=== PATIENT | female | born 1970 | race Caucasian/White ===

== ENCOUNTER 2024-06-01 09:17 | Outpatient (AMB) | payer BC, SELFPAY ==
--- NOTE | 2024-06-01 09:17 | A.SPINEOV_ITS ---
Vital Signs 06/01/24 09:28 Height 5 ft 2 in Weight 140 lb BMI 25.6 Intake Visit Reasons: Herniated disc c7 Intake Note: Ms. Bennett is here today c/o Neck pain and left arm pain. Bath Steward/Stewardess Required: No Allergies Penicillins Allergy (Severe, Verified 06/01/24 09:29) Rash pneumococcal vaccine Allergy (Severe, Verified 06/01/24 09:29) Swelling Physical Exam Vital Signs: BMI result Body Mass Index 25.6 Assessment & Plan Assessment & Plan (1) Herniation of cervical intervertebral disc with radiculopathy: Code(s): M50.10 - Cervical disc disorder with radiculopathy, unspecified cervical region Category: Medical Plan: Dear colleague On 06/01/2024, I saw for 2nd opinion Shawanda Bennett chief complaint of left arm pain and numbness. HPI: This 54-year-old female went on a trip to [place] in November 2023 when she developed an acute pain on the dorsum of her left lower arm and num bness of her fingers. Initially the pain was 10/10 and improved to be currently at 6/10. The symptoms have persisted despite physical therapy chiropractic therapy and a course of prednisone. She takes gabapentin 200 mg twice a day and meloxicam to treat the ongoing pain symptoms. The pain radiates from the neck down to her left arm into the 2nd and 3rd finger. In addition there is numbness of the 2nd and 3rd finger. The pain wakes her up at night and it interferes with her daily activities. 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 She is looking for a more definitive PMH: Migraines, GERD, migraines, some form of autoimmune disease Medications: Famotidine, gabapentin, meloxicam, sumatriptan, Bprimate Allergies: Penicillin, pneumonia vaccine Social history: . Nonsmoker Physical Exam: Pleasant female. Spurling sign is positive with pain radiating down her left arm. Motor exam is 5/5 throughout. Sensory exam shows diminished sensation over the 2nd and 3rd digit on the left side. Decreased triceps reflex on the left. Radiological Studies: MRI done at [facility] on 02/07/2024 shows a cervical disc herniation C6-7 compressing the left C7 nerve root in addition there is complete disc collapse of C5-6 with for listhesis of C5 C6. Impression/Plan: This patient is suffering from a left C7 radiculopathy due to a disc herniation not responding to conservative treatments. I offered her a surgery decompress the C7 nerve root. However, I would like to have a CT of the cervical spine to assess if the C5-6 level is auto fused. If it is, then I would propose to do an anterior diskectomy and fusion C6-7 but if it is in fused then I would prefer to insert an artificial disc C6-7 to reduce the stress on the C5-6 level in the future. The patient will return to my clinic after the CT is done to finalize the surgical plan. Thank you for allowing me to participate in your patients care. total time spent was 50 minutes in counseling ,coordination of plan, personal review of imaging, surgical decision making and subsequent plan Chase Quigley MD, PhD Spine Fellowship Trained Neurosurgeon Director, [facility] Orders: Orders CT cervical spine wo IV con Today M50.10 - Cervical disc disorder with radiculopathy, unspecified cervical region Coding Level of Care Code New Pt Level 4 (89668) Diagnoses Herniation of cervical intervertebral disc with radiculopathy M50.10
[2024-06-01 09:28] VITALS: BMI 25.6
== END 2024-06-01 10:01 | disposition home or self-care (01) ==
PROVIDERS: PCP Internal Medicine; Visit Provider Neurological Surgery
DX: M50.10 Cervical disc disorder with radiculopathy, unspecified cervical region (principal)
CPT/HCPCS: 99204

== ENCOUNTER 2024-06-15 14:27 | Outpatient (AMB) | payer BC, SELFPAY ==
--- NOTE | 2024-06-15 14:46 | HO.SPINEOV ---
Intake Visit Reasons: F/up CT/finalize surgical plans Intake Note: Mrs. Bennett is here today to F/u on the results to her CT. Benefits Coordinator Required: No Allergies Penicillins Allergy (Severe, Verified 06/15/24 14:46) Rash pneumococcal vaccine Allergy (Severe, Verified 06/15/24 14:46) Swelling Assessment & Plan Assessment & Plan (1) Herniation of cervical intervertebral disc with radiculopathy: Code(s): M50.10 - Cervical disc disorder with radiculopathy, unspecified cervical region Category: Medical Plan Dear colleague, On 06/15/2024 I saw for follow-up Shawanda Bennett to discuss a surgical plan. This patient is suffering from a left C7 radiculopathy due to a disc herniation not responding to conservative treatments. We decided to order a CT scan to determine which surgery would be most appropriate to treat her left arm pain. The CT scan of the cervical spine shows that the C5-6 level is fused and therefore in my opinion an anterior diskectomy and fusion C6-7 is the most appropriate procedure this patient. She scheduled for 06/26/2024. We discussed the procedure and expected postoperative outcome. I spent 15 minutes in his consult to review imaging and discuss plan of care. Chase Quigley MD, PhD Spine Fellowship Trained Neurosurgeon Director, [facility] [place] [facility] Coding Level of Care Code Est Pt Level 2 (43618) Diagnoses Herniation of cervical intervertebral disc with radiculopathy M50.10
== END 2024-06-15 15:41 | disposition home or self-care (01) ==
LOC: HO.HNS 14:27
PROVIDERS: PCP Internal Medicine; Visit Provider Neurological Surgery
DX: M50.10 Cervical disc disorder with radiculopathy, unspecified cervical region (principal)
CPT/HCPCS: 99212

== ENCOUNTER → 2024-07-06 12:18 | Outpatient (BNV) | payer BC, SELFPAY | PROVIDERS: PCP Internal Medicine; Visit Provider Internal Medicine Cardiovascular Disease | DX: Z01.810 Encounter for preprocedural cardiovascular examination (principal); M50.10 Cervical disc disorder with radiculopathy, unspecified cervical region | CPT/HCPCS: 93010 ==

== ENCOUNTER 2024-07-11 05:42 | Day surgery (SDC) | payer BC, SELFPAY ==
[2024-07-06 11:41] VITALS: BP 147/72; PULSE 78; RESP 16; O2SAT 99; BMI 25.6
--- NOTE | 2024-07-06 12:18 | ECG_ITS ---
Test Reason : PREOP Blood Pressure : */* mmHG Vent. Rate : 59 BPM Atrial Rate : 59 BPM P-R Int : 158 ms QRS Dur : 74 ms QT Int : 374 ms P-R-T Axes : -15 -9 -14 degrees QTcB Int : 370 ms Sinus bradycardia Otherwise normal ECG No previous ECGs available Referred By: Megan Hernandez Electronically Signed By: Andres Ann
--- NOTE | 2024-07-10 17:19 | P.CONAN_ITS ---
HPI - Anesthesia Eval Consult details Narrative: 54 yo female patient for C6-7 ACDF PMFSH Active Problems Active Problems: All Active Problems Herniation of cervical intervertebral disc with radiculopathy (Acute) Past Medical History Medical History Osteopenia Personal history of COVID-19 (02/2024) Asthma Raynaud disease Chilblain GERD (gastroesophageal reflux disease) Left arm numbness Migraines Family History Family history of problems with anesthesia: No Surgical History Surgical History History of section Hx of breast surgery Hx of hysterectomy Hx of tubal ligation Hx of colonoscopy History of Problems with Anesthesia: No Social History Social History Household Members: Spouse Housing: House Are you a primary spiritual care coordinator to a significant other at home: No Do you presently have visiting nurse or other home services: No Comment: aware of trip hazard Patient Tobacco Use Status: Never used Tobacco e-Cigarette/Vaping Use: Never Used Use of substances other than those prescribed or required for medical reasons: No Have you been hit, kicked, punched, or otherwise hurt by someone within the past year? If so, by whom?: No Are you DNR?: No Advance Directives: No Advance Directives Information Provided: Yes Advance Directives on File: No Poor oral hygiene: No Meds Allergies Allergy/AdvReac Type Severity Reaction Status Date / Time pneumococcal vaccine Allergy Severe Swelling Verified 06/15/24 14:46 Penicillins Allergy Unknown Rash, as a Verified 07/05/24 16:21 baby Home Medications ?Medication ?Instructions ?Recorded ?Confirmed ?Last Taken ?Type cholecalciferol (vitamin D3) 25 25 mcg PO DAILY 07/05/24 07/05/24 Unknown History mcg (1,000 unit) capsule (Vitamin D3) famotidine 20 mg tablet 20 mg PO BEDTIME 07/05/24 07/05/24 Unknown History gabapentin 300 mg capsule 300 mg PO BID 07/05/24 07/11/24 07/11/24 03:00 History multivitamin 1 tab PO DAILY 07/05/24 07/05/24 Unknown History sumatriptan succinate 100 mg tablet 100 mg PO DAILY PRN Migraine 07/05/24 07/05/24 Unknown History Headache topiramate 25 mg tablet 75 mg PO BEDTIME 07/05/24 07/06/24 Unknown History Exam Height,Weight and Vital Signs: Height 5 ft 2 in Weight 63.503 kg Last Vital Signs Pulse 78 07/06/24 11:41 Resp 16 07/06/24 11:41 BP 147/72 H 07/06/24 11:41 Pulse Ox 99 07/06/24 11:41 O2 Del Method Room Air 07/06/24 11:41 Vital Signs Temp Pulse Resp BP Pulse Ox O2 Del Method 07/11/24 06:21 97.9 F 63 16 127/78 100 Room Air Airway Mallampati Class: II TM Dist: >3cm Neck ROM: Full Loose/Missing/Broken Teeth: Yes (Missing molars. Denies broken or loose teeth. Caps intact) Heart: RRR Lungs: CTAB Assessment and Plan Assessment Anesthesia Assessment: Anesthesia Plan Discussed and Chart Reviewed Final Anesthetic Review Family History of Problems with Anesthesia: No History of Problems with Anesthesia: No NPO: Yes ASA Class: II Final Preanesthetic Review: No Changes in Pt Med Stat, Meds/Allgs Chart Reviewed, Consent Obtained/Reviewed and Anes Risks/Benef Reviewed Patient Risk: Intermediate Procedure Risk: Low Assessment/Block/Sedation in SS: Assess/Block/Sedation-SS Anesthetic Plan Anesthetic Plan: GA Disposition: Standard PACU
--- NOTE | ~2024-07-11 | FL_ITS ---
EXAMINATION: FL GUIDANCE ONLY HISTORY: C6-C7 ACDF COMPARISON: None available. TECHNIQUE: Fluoroscopy time: 1.1 seconds. Cumulative Dose: 0.4 mGy. DAP: 0.1130 mGym2 Images: 2. FINDINGS: Images demonstrate anterior cervical disc fusion at C6-7. FL/FL guidance in OR IMPRESSION: Fluoroscopy during procedure. Please see procedure report for additional information. Electronically signed by: Boby Toney MD 07/11/2024 09:05 AM EDT
[2024-07-11 06:01] VITALS: BMI 25.6
[2024-07-11 06:10] VITALS: BMI 25.6
[2024-07-11 06:21] VITALS: BP 127/78; PULSE 63; RESP 16; TEMP 36.6; O2SAT 100
[2024-07-11] MEDS: methocarbamoL 750 MG TABLET PO (06:55)
--- NOTE | 2024-07-11 06:59 | P.HPSUR_ITS ---
Pre-Procedural Eval Section A - 24 Hr Update-Section A only Date of Service: 07/11/24 Section B - Complete if H&P > 30 days Chief Complaint: Cervical disc disorder with radiculopathy, unspeci Allergies: Allergies Allergy/AdvReac Type Severity Reaction Status Date / Time pneumococcal vaccine Allergy Severe Swelling Verified 06/15/24 14:46 Penicillins Allergy Unknown Rash, as a Verified 07/05/24 16:21 baby Review of Systems Sugical H&P ROS: Negative: Constitution, Cardiovascular, Respiratory, Neurological, Psychiatric, Hem-Onc, Allergic/Immunologic, Gastrointestinal, G enitourinary, Musculoskeletal, Integumentary, Endocrine and Eyes/Ears/Nose/Throat Exam Surgical H&P Exam: Not Evaluated: HEENT, Not Evaluated: Heart, Not Evaluated: Lungs, Not Evaluated: Extremities, Not Evaluated: Abdomen, Not Evaluated: Skin and Not Evaluated: Neurological Exam Comment: The patient is awake, alert, no acute distress. Proposed surgical incision site is clean, dry, with no signs of recent trauma or surgery. Plan Diagnosis/Plan: Unchanged I have reviewed the history and physical and performed a pertinent physical examination on my patient. No changes have occurred unless specified. Plan remains the same, C6-7 ACDF. Time Spent With Patient Time: Total time managing care of this patient today __12__ minutes.
[2024-07-11] MEDS: vancomycin HCL 1,000 MG in 0.9 % Sodium Chloride 250 ML 270 MG IV (07:01)
[2024-07-11] MEDS: Acetaminophen 1,000 MG/100 ML PIGGYBACK 400 MG IV (08:05)
--- NOTE | 2024-07-11 08:38 | W.PM.OPN ---
Operative Note Operative Note Date of Service: 07/11/24 Narrative: Preoperative Diagnosis: Left cervical radiculopathy Procedure: C6-7 Anterior discectomy, arthrodesis and implantation cage ; C6-7 anterior instrumentation ; local autograft; microscope Informed Consent was obtained for this operation. I have explained the nature, purpose and benefits of the operation. I have discussed the risks and benefit of the operation including possible complications or adverse events with patient/family. Alternative(s) were discussed with the patient with their relative benefits and risks as well as the consequences of not accepting the operation were included in obtaining consent. Surgeon: ENMANUEL MONTGOMERY MD, PHD Procedure Assisted By: CARLITOS Pablo Description of Procedure: This 54-year-old female suffering from left-sided radiculopathy with pain and tingling due to a left-sided disc herniation C6-7 compressing the left C7 nerve root. She was offered an anterior diskectomy and fusion of this level. The procedure complications were explained. The patient was consented. The patient was brought to the operating room and endotracheally intubated. The patient was put in supine position with slight extension of the neck. Prep and drape was done followed by timeout. A mid cervical incision was made followed by opening of the platysma. The prevertebral fascia was reached following the natural planes while the physician political science research assistant provided manual retraction. The prevertebral fascia was opened to expose the disc space. A spinal needle was placed in the disk space to confirm the correct level with xray. The longus colli muscles were released bilaterally and a self retaining retractor was inserted. Two Parsons pins were placed in the C6 and C7 vertebral bodies and distraction was give over the interspace. The discectomy was completed toward the posterior annulus of the disc. The microscope was brought in. The remainder of the discectomy was completed. The posterior ligament was opened and resected to expose the underlying dura. Osteophytes were resected from the body of C6-C7 and saved for autograft. Bilateral foraminotomies were done. Significant foraminal stenosis was present on the left side. The endplates were prepared after which a 6 mm cage filled with autograft was inserted into the disc space. A separate attached plate was locked down with 2 x 14 mm screws as anterior instrumentation. Final x-rays in AP and lateral projection showed a satisfactory position of the implant. The physician political science research assistant took over. The Parsons pin was removed. Hemostasis was done. He closed the incision in 2 layers with a 3-0 Vicryl. Steri-Strips used to approximate incision. An OpSite with Tegaderm was used to cover the incision. All sponge and needle counts were correct. Patient was extubated and transported in stable is to recovery room. Anesthesia: General Estimated Blood Loss (ml): 10 Duration of Surgery: 40 minutes Postoperative Plan: Discharge home Complications: None
--- NOTE | 2024-07-11 08:49 | P.DS_ITS ---
DS: Providers Provider Date of Service: 07/11/24 Date of discharge: 07/11/24 Primary care physician: Abbie Bal MD DS: Summary Time Attestation Discharge Coordination Time (in mins): 12 Quality: Safe Use of Opioids Does Pt have an Active Cancer Diagnosis on the Problem List?: No Quality: Stroke Does the patient have a stroke diagnosis?: No Physical Exam Vital Signs: Vital Signs: Last Vital Signs Temp 97.9 F 07/11/24 06:21 Pulse 63 07/11/24 06:21 Resp 16 07/11/24 06:21 BP 127/78 07/11/24 06:21 Pulse Ox 100 07/11/24 06:21 O2 Del Method Room Air 07/11/24 06:21 BMI result Body Mass Index 25.6 Discharge Plan Discharge Patient Disposition: Home, Self-Care Referrals: Abbie Bal MD [Primary Care Provider] - 1 Week Discharge Medications: New oxycodone 5 mg tablet 5 mg PO Q6H PRN (Reason: pain) Qty: 30 0RF Rx Instructions: Partial Fill upon patient request. Continued sumatriptan succinate 100 mg tablet 100 mg PO DAILY PRN (Reason: Migraine Headache) topiramate 25 mg tablet 75 mg PO BEDTIME famotidine 20 mg tablet 20 mg PO BEDTIME gabapentin 300 mg capsule 300 mg PO BID multivitamin Tablet 1 tab PO DAILY cholecalciferol (vitamin D3) [Vitamin D3] 25 mcg (1,000 unit) Capsule 25 mcg PO DAILY Discharge Orders: Discharge Order (Routine); Ordered 07/11/24 Ordered By: Yousif Robison Diet: Advance to usual diet Activity on Discharge: As tolerated Activity Restrictions/Additional Instructions: After your spinal surgery we ask you to observe the following restrictions/guidelines: Activity: It is normal to feel some discomfort as you increase your activity, but that will improve with time. We ask you avoid heavy lifting or acitivities that cause pain. As a general rule, 8lbs is a safe limit for lifting right after surgery. Walk as much as you feel comfortable but not to exhaustion. You will feel extra tired the first few days after surgery. Stay well hydrated. It is OK to walk up and down stairs You may return to driving when you are off narcotics (such as vicodin, oxycodone, dilaudid, etc), and you are back to normal functional capacity. If you have any concerns please check with office before driving. Return to work is specific to each patient and each surgery, so please speak with your doctor/PA at first follow up. Please bring paperwork such as FMLA at that time if you need it filled out. Medications: We recommend you take 1,000mg Tylenol every 8 hours for the first few weeks after surgery, if you do not have any liver issues and can tolerate this medication. Do not exceed 4,000mg daily. We will give you a short supply of narcotics after surgery (usually one weeks worth). If you need more please call the office but do not use more than prescribed. You will need to give our office 48 hours notice if you need narcotics refilled and we do not fill narcotics on weekends or evenings. If you are on a narcotic, it is a good idea to take a stool softener such as colace or senna to avoid constipation If you take blood thinner such as aspirin, Plavix, Coumadin, Effient, Eliquis etc for conditions such as Afib, DVT, Pulmonary embolus, coronary disease, stents etc please speak with your surgeon about specific details as to when you can resume these medications. You can resume NSAIDs on post op day 1 (eg: Motrin, Naproxen, etc). Follow up: Please call the office, , after surgery to arrange a 3 week follow up for wound check. Wound Care: You may remove your dressing on the first day after surgery. ?You may ?leave open to air. Please do not remove the steri strips underneath. they will fall off on their own in one week. IT IS NORMAL FOR THE WOUND TO OOZE OR BE BLOODY FOR A FEW DAYS AFTER SURGERY. ?IF THIS HAPPENS JUST PLACE NEW DRESSING OVER IT TO AVOID STAINING CLOTHES. You may shower on post op day # 1 We ask that you do not let the water soak the wound. If it does get wet, just towel dry lightly. Please do not scrub your incision or place any type of chemical/ointment on the wound. No tub baths, pools or jacuzzis for one month. If you have any leaking or redness from your wound, or fevers, please call the office. Print Language: Lebanese
[2024-07-11 09:00] VITALS: BP 114/73; PULSE 93; RESP 12; TEMP 36.1; O2SAT 99
[2024-07-11 09:05] VITALS: BP 140/79; PULSE 95; RESP 12; O2SAT 100
[2024-07-11 09:10] VITALS: BP 134/79; PULSE 91; RESP 16; O2SAT 100
[2024-07-11 09:15] VITALS: BP 138/85; PULSE 82; RESP 20; O2SAT 99
[2024-07-11] MEDS: oxyCODONE HCl Immed Release 5 MG TABLET PO (09:19)
[2024-07-11 09:30] VITALS: BP 135/85; PULSE 70; RESP 18; TEMP 36.4; O2SAT 100
== END 2024-07-11 10:01 | disposition home or self-care (01) ==
PROVIDERS: PCP Internal Medicine; Visit Provider Neurological Surgery
PROC: (CPT 22551; principal; 2024-07-11 07:30)
DX: M50.123 Cervical disc disorder at C6-C7 level with radiculopathy (principal); J45.909 Unspecified asthma, uncomplicated; I73.00 Raynaud's syndrome without gangrene; M85.80 Other specified disorders of bone density and structure, unspecified site; G43.909 Migraine, unspecified, not intractable, without status migrainosus; R20.0 Anesthesia of skin; K21.9 Gastro-esophageal reflux disease without esophagitis; Z79.899 Other long term (current) drug therapy; Z88.0 Allergy status to penicillin; Z88.7 Allergy status to serum and vaccine; Z98.890 Other specified postprocedural states
CPT/HCPCS: 22551; 22853; 20936; 22845; 93005; C1713; C1889; J0131; J1100; J2003; J2250; J2405; J2704; J3010; J3370

== ENCOUNTER → 2024-07-11 05:42 | Outpatient (BNV) | payer BC, SELFPAY | PROVIDERS: PCP Internal Medicine; Visit Provider Neurological Surgery | DX: M54.12 Radiculopathy, cervical region (principal) | CPT/HCPCS: 20936; 22551; 22845; 22853; 99499 ==

== ENCOUNTER 2024-07-20 15:56 | Outpatient (REF) | payer BC, SELFPAY | END 2024-07-20 15:57 | disposition home or self-care (01) | LOC: HO.HOSX 15:56 | PROVIDERS: Visit Provider Physician Assistant | DX: Z13.89 Encounter for screening for other disorder (principal) ==

== ENCOUNTER → 2024-07-23 13:01 | Outpatient (BNV) | payer BC, SELFPAY | PROVIDERS: Visit Provider Radiology Diagnostic Radiology | DX: M47.812 Spondylosis without myelopathy or radiculopathy, cervical region (principal) | CPT/HCPCS: 72050 ==

== ENCOUNTER 2024-07-23 13:16 | Outpatient (AMB) | payer BC, SELFPAY ==
--- NOTE | 2024-07-23 13:27 | A.SPINEOV_ITS ---
Intake Visit Reasons: post op pain Intake Note: Mrs. Bennett is here today c/o pain after surgery. Systems Development Manager Required: No Allergies pneumococcal vaccine Allergy (Severe, Verified 06/15/24 14:46) Swelling Penicillins Allergy (Unknown, Verified 07/05/24 16:21) Rash, as a baby Assessment & Plan Assessment & Plan (1) Herniation of cervical intervertebral disc with radiculopathy: Code(s): M50.10 - Cervical disc disorder with radiculopathy, unspecified cervical region Category: Medical Plan Mrs Bennett is about 2 weeks out from an anterior cervical diskectomy and fusion C6-7 for herniated disc in the left C7 foramen. She was doing wonderfully until about 4 days ago when she experienced a recurrence of the pain. Specifically pain in the forearm that was radiating down into her index and middle finger exactly like it was before surgery in the left side. I spoke to her last week, called her in some steroids and gabapentin. She was unable to get the gabapentin because of insurance reasons. Since we started her on the steroids she is feeling better and has slept a little bit more. She has been reluctant to take the oxycodone. On my exam, she has full strength and reflexes are intact. Her wound is healing up nicely. I got x-rays today with flexion-extension views and these all look excellent. I reassured her that I think this will go away in time. It is unlikely to be a recurrent herniated disc as the [place] disc is now gone. There is some disc degeneration above at C5-6 with a slight retrolisthesis and is possible this may be part of what is going on but I am not sure how to make sense of that in light of the fact that it was gone for about 10 days which suggests that it is C7 nerve that is inflamed. I suggested to her we give this a little more time, but if it has not gone in the next week or 2 we could certainly order an MRI to evaluate a little More closely. Woody Quigley MD, PhD [facility] Medications: New gabapentin 300 mg (6 mL) PO Q8H 240 mL 0RF Coding Level of Care Code Global (32123) Diagnoses Herniation of cervical intervertebral disc with radiculopathy M50.10
== END 2024-07-23 14:06 | disposition home or self-care (01) ==
LOC: HO.HNS 13:17
PROVIDERS: PCP Internal Medicine; Visit Provider Physician Assistant
DX: M50.10 Cervical disc disorder with radiculopathy, unspecified cervical region (principal)
CPT/HCPCS: 99024

== ENCOUNTER 2024-07-23 15:56 | Outpatient (REF) | payer BC, SELFPAY ==
--- NOTE | ~2024-07-23 | XR_ITS ---
EXAMINATION: XR CERVICAL SPINE CLINICAL INFORMATION: M50.10 - Cervical disc disorder with radiculopathy, unspecified cervical... COMPARISON: None available. TECHNIQUE: 6 views of the cervical spine, inclusive of flexion and extension views, were obtained. FINDINGS: The craniocervical junction is intact with normal alignment. There is metallic or radiopaque intervertebral disc spacer placement at C6-7. There is marginal osteophyte formation and endplate sclerosis and decreased intervertebral disc height at C5-6. There is a grade 1 retrolisthesis C5-6 in neutral position which contains during flexion and extension position. No lytic or blastic lesions. Upper airway is patent. Probable azygos lobe. XR/XR cervical spine 4V IMPRESSION: Cervical spondylosis C5-6 resulting in grade 1 retrolisthesis without instability. Electronically signed by: Jasvir Borja MD 07/25/2024 02:48 PM EDT
== END 2024-07-23 15:57 | disposition home or self-care (01) ==
LOC: HO.HOSX 15:56
PROVIDERS: Visit Provider Physician Assistant
DX: M50.10 Cervical disc disorder with radiculopathy, unspecified cervical region (principal); Z79.899 Other long term (current) drug therapy
CPT/HCPCS: 72050

== ENCOUNTER 2024-08-06 11:18 | Outpatient (AMB) | payer BC, SELFPAY ==
--- NOTE | 2024-08-06 11:27 | A.SPINEOV_ITS ---
Intake Visit Reasons: 1st post-op Intake Note: Ms. Bennett is here today for her 1st post op. Workers Compensation Manager Required: No Allergies pneumococcal vaccine Allergy (Severe, Verified 08/06/24 11:28) Swelling Penicillins Allergy (Unknown, Verified 08/06/24 11:28) Rash, as a baby Assessment & Plan Assessment & Plan (1) S/P cervical spinal fusion: Code(s): Z98.1 - Arthrodesis status Category: Surgical Plan Mariah is a pleasant 54 year old female who underwent C6-[address] Beau pineda a few weeks ago. To recap she was initially evaluated in clinic for pain in the left forearm that was radiating down into her index and middle finger. She reported some numbness of her left index and middle finger as well before surgery. She reports that for 1 week after surgery she has no symptoms aside from some swallowing difficulties. However, shortly thereafter she began experiencing a recurrence of symptoms. She now reports the same symptoms she had pre-operatively, with a new component of posterior neck pain and lower occipital pain. See previous office visit note from CARLITOS Escalera regarding further specifics of this issue. She has been utilizing the gabapentin Rx and completed the course of steroids prescribed by CARLITOS Escalera. She is in obvious pain during her examination today, and reports being in significant pain throughout the day. This most recently has caused her to begin losing sleep at night, waking multiple times throughout the night in pain. She has even purchased a new neck pillow in an attempt to mitigate the pain without alleviation of symptoms. On exam she has (+) right sided vera's (-) left sided. No hyper-reflexia. Strength is intact 5/5 in bilateral upper extremities. Numbness reported to light touch over dorsal surface left forearm and left 2nd and 3rd phalanges. Anterior incision site is closed and well healing with no signs of drainage. I would like to send Mariah for a cervical MRI as recommended previously by CARLITOS Escalera, as her symptoms have continued to persist. I will refill her gabapentin and review her images with Dr. Quigley when they are available. Yousif Quigley MD,PhD [facility] Orders: Orders MR cervical spine wo con Today Z98.1 - Arthrodesis status Coding Level of Care Code Global (06512) Diagnoses S/P cervical spinal fusion Z98.1
== END 2024-08-06 12:10 | disposition home or self-care (01) ==
LOC: HO.HNS 11:18
PROVIDERS: Visit Provider Physician Assistant
DX: Z98.1 Arthrodesis status (principal)
CPT/HCPCS: 99024

== ENCOUNTER 2024-08-07 19:04 | Outpatient (REF) | payer BC, SELFPAY ==
--- NOTE | ~2024-08-07 | MR_ITS ---
EXAMINATION: MR CERVICAL SPINE WITHOUT CONTRAST CLINICAL INFORMATION: Arthrodesis status; evaluate for nerve compression status post fusion 06/2024. COMPARISON: MRI cervical [facility] 02/07/2024. Cervical spine radiographs 07/23/2024. TECHNIQUE: Multiplanar multisequence MR imaging of the cervical spine was done prior to and without the administration IV gadolinium. Examination was performed on a 1.5 Ruby Siemens unit, using standard sequences. FINDINGS: CORONAL ALIGNMENT: -Normal. SAGITTAL ALIGNMENT: -Mild reversal of the normal lordosis centered at C5. -There is a 2 mm degenerative appearing retrolisthesis of C5 on C6. -Sagittal alignment is otherwise anatomic. CRANIOCERVICAL JUNCTION/C1-2 ARTICULATIONS: -Intact and aligned. VERTEBRAL BODIES/BONE MARROW: -There has been anterior fusion of C6-7 with disc prosthesis and oblique endplate screws. Hardware creates localized susceptibility artifact, obscuring immediately adjacent soft tissue and bone. There is also loss of fat suppression as a result on the STIR sequence. -There are no compression deformities, regions of bone marrow edema, or acute bony abnormalities. No suspicious regions of bone marrow signal. DISCS: -Severe loss of disc height and signal at C5-6. -There is otherwise relative preservation of disc height and signal at the additional nonoperative levels. CERVICAL CORD: -Normal in caliber and signal throughout. There is no regional cord impingement or deformity. PARAVERTEBRAL SOFT TISSUES: -Normal appearance. No paraspinous or paravertebral edema or abnormal fluid collection. -The thyroid is obscured by a saturation band. VISUALIZED INTRACRANIAL STRUCTURES: -Imaged posterior fossa structures appear normal. Normal flow voids within both vertebral arteries. AXIAL DISC SPACE IMAGING: C2-C3: No significant disc pathology. Moderate left facet hypertrophic arthropathy is present, and mild right, with mild bilateral uncinate spurring, with findings contributing to moderate to severe left and mild right neural foraminal stenosis. No change. C3-C4: No significant disc pathology. No central canal stenosis. Mild to moderate bilateral hypertrophic degenerative facet changes present, resulting in mild right and moderate left neural foraminal stenosis. No change. C4-C5: No significant disc pathology. Mild to moderate left greater than right hypertrophic degenerative facet changes present, with findings resulting in moderate to severe left neural foraminal stenosis. The right neural foramen is patent. C5-C6: Shallow diffuse disc bulge is present, indenting upon the ventral thecal sac but not contacting the cord. This results in minimal central canal narrowing. Moderate bilateral uncinate spurring and mild bilateral facet spurring symmetrically, contributing to moderate bilateral neural foraminal stenosis. C6-C7: Anterior fusion and discectomy at this level. There is no residual central canal stenosis. The facets are minimally hypertrophied. There is mild bilateral uncinate spurring contributing to mild right and moderate left neural foraminal stenosis. C7-T1: There is no significant central canal or neural foraminal narrowing. T1-T4: There is no significant central canal or neural foraminal narrowing. MR/MR cervical spine wo con IMPRESSION: 1. Interval anterior fusion and discectomy at C6-7, without evidence of complication by MR. There is no recurrent or residual central canal stenosis, cord impingement, deformity, or signal abnormality. 2. Multilevel uncinate and facet spurring contributes to multilevel neural foraminal narrowing as described above. At the operative level, there is mild right and moderate left neural foraminal stenosis. Electronically signed by: Maxime Ramírez MD 08/08/2024 08:35 AM EDT
== END 2024-08-07 19:05 | disposition home or self-care (01) ==
LOC: HO.MRI 19:04
PROVIDERS: Visit Provider Physician Assistant
DX: Z98.1 Arthrodesis status (principal); M48.02 Spinal stenosis, cervical region
CPT/HCPCS: 72141

== ENCOUNTER → 2024-08-07 19:04 | Outpatient (BNV) | payer BC, SELFPAY | PROVIDERS: Visit Provider Radiology Diagnostic Radiology | DX: M43.22 Fusion of spine, cervical region (principal); M50.223 Other cervical disc displacement at C6-C7 level; M48.02 Spinal stenosis, cervical region; M25.78 Osteophyte, vertebrae | CPT/HCPCS: 72141 ==

== ENCOUNTER 2024-08-21 14:28 | Outpatient (AMB) | payer BC, SELFPAY ==
--- NOTE | 2024-08-21 14:30 | A.SPINEOV_ITS ---
Intake Visit Reasons: clearance to go back to work Intake Note: Ms. Bennett is here today to discuss clearance to go back to work. 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 She reports that her symptoms remain similar to how they were when we last spoke and reviewed her MRI. To recap the MRI did not show any continued or worsening compression involving the surgical construct. I completed her return to work letter during this encounter. Her anterior incision site appears closed and well healed. There is no need for continued routine follow up with Mariah. Yousif Quigley MD,PhD [facility] Coding Level of Care Code Global (20882) Diagnoses S/P cervical spinal fusion Z98.1
== END 2024-08-21 15:47 | disposition home or self-care (01) ==
LOC: HO.HNS 14:28
PROVIDERS: Visit Provider Physician Assistant
DX: Z98.1 Arthrodesis status (principal)
CPT/HCPCS: 99024

== ENCOUNTER → 2024-08-21 14:28 | Outpatient (BNVA) | payer BC, SELFPAY | PROVIDERS: Visit Provider Physician Assistant ==

== ENCOUNTER 2024-10-10 15:10 | Outpatient (AMB) | payer BC, SELFPAY ==
--- NOTE | 2024-10-10 15:20 | A.SPINEOV_ITS ---
Intake Visit Reasons: F/u Intake Note: Ms. Bennett is here today for a F/u. 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 She underwent an anterior diskectomy and fusion C6-7 for left arm pain on 07/11/2024. She had complete relief for 1 week after which her symptoms returned. We started some prednisone which helped and wait and see but unfortunately the pain persisted. She is currently taking 600 mg of gabapentin and Tylenol 3 times a day to do with the pain that is located in her lower arm and 2nd and 3rd finger with associated numbness. We ordered a new MRI of the cervical spine that shows moderate left C7 foraminal stenosis. In addition, it showed the pre-existent C5-C6 disc collapse which shows an auto fusion at CT scan. No nerve root compression is seen on the left-sided this level. I discussed with the patient the option of a left C7 posterior foraminotomy as a method to create even more space with a C7 nerve root in a final attempt to alleviate her pain. I did warn her that most of the patients after an ACDF are pain-free and that the persisting abnormality seen on her MRI is not severe but in the context of her ongoing symptoms a foraminotomy can be offered. Her quality of life is affected by the ongoing symptoms and she is going to discuss the option further with her . She will let my office know if she wants to proceed. Chase Quigley MD, PhD Spine Fellowship Trained Neurosurgeon Director, [facility] Coding Level of Care Code Global (53872) Diagnoses Cervical radiculopathy at C7 M54.12 S/P cervical spinal fusion Z98.1
== END 2024-10-10 16:12 | disposition home or self-care (01) ==
LOC: HO.HNS 15:11
PROVIDERS: Visit Provider Neurological Surgery
DX: M54.12 Radiculopathy, cervical region (principal); Z98.1 Arthrodesis status
CPT/HCPCS: 99213

== ENCOUNTER 2024-11-22 09:46 | Day surgery (SDC) | payer BC, SELFPAY ==
[2024-11-20 10:02] VITALS: BMI 25.6
--- OUTSIDE RECORDS SUMMARY | 2024-11-21 16:23 | XMS_ITS | Clinical Summary ---
Author Organization Formerly [facility] [place] [address] Care Team Providers Care Plastic And Reconstructive Surgeon Name Role Phone Abbie Bal MD Primary Care Provider [phone] Allergies Active Allergy Reactions Criticality Noted Date Comments Penicillins Hives,Rash 10/22/2024 Pneumococcal Vaccine 10/22/2024 Large amount of swelling at site of vaccine Medications gabapentin (Neurontin) 250 mg/5 mL Solution TAKE 12 ML BY MOUTH DAILY 5 Active meloxicam (Mobic) 15 mg tablet TAKE 1 TABLET BY MOUTH DAILY NEEDED FOR PAIN OR INFLAMMATION 5 Active SUMAtriptan (Imitrex) 100 mg tablet 100 mg. Active topiramate (Topamax) 25 mg tablet Take 3 tablets by mouth 2 times daily. 5 Active famotidine (Pepcid) 20 mg tablet Take 20 mg by mouth nightly. 5 Active calcium-vitamin D3 600 mg-5 mcg (200 unit) Capsule Take by mouth. Activ e cyanocobalamin, Vitamin B-12, (Vitamin B-12) 250 mcg tablet Take 250 mcg by mouth daily. Active ubrogepant (Ubrelvy) 100 mg tabletIndicatio ns:Chronic migraine without aura without status migrainosus, not intractable Take orally one tablet at migraine onset; may repeat once within 24 hours. 9 tablet 5 5 Active acetaminophen (Tylenol) 650 mg/20.3 mL Solution Take 1,000 mg by mouth 3 times daily as needed. Active Encounters Date Type Department Care Team Description 10/24/2024 [place] [address] Chelle Castaneda CMA Prior Authorization (ubrogepant (Ubrelvy) 100 mg tablet) 10/22/2024 2:00 PM EDT Office [place] [address] Gilbert Rangel MD Chronic migraine without aura without status migrainosus, not intractable (Primary Dx); Carpal tunnel syndrome, bilateral; Chronic neck pain 10/22/2024 Travel 10/15/2024 Travel 09/03/2024 Transcribe Orders eDH Incoming Referrals [phone] Abbie Bal MD Paresthesia of skin; Migraine with aura and without status migrainosus, not intractable from Last 3 Months Social History Tobacco Use Types Packs/Day Years Used Date Smoking Tobacco: Never Tobacco Cessation:Counseling Given: Not Answered Comments Unknown Sex and Gender Information Value Date Recorded Sex Assigned at Not on file Legal Sex Female 2:35 PM EDT Gender Identity Not on file Sexual Orientation Not on file 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 - [employer] Not on file Not on file Not on file Last Filed Vital Signs Vital Sign Reading Time Taken Comments Blood Pressure 121/77 10/22/2024 1:55 PM EDT Pulse 85 10/22/2024 1:55 PM EDT Temperature - - Respiratory Rate - - Oxygen Saturation 100% 10/22/2024 1:55 PM EDT Inhaled Oxygen Concentration - - Weight 63.5 kg (140 lb) 10/22/2024 1:55 PM EDT Height 157.5 cm (5' 2 ) 10/22/2024 1:55 PM EDT Body Mass Index 25.61 10/22/2024 1:55 PM EDT Plan of Treatment Health Maintenance Due Date Last Done Comments CT Colonography 1968 Colonoscopy 1968 Colorectal Cancer Screening 1968 FIT DNA 1968 FIT 1968 Sigmoidoscopy (10 year) with FIT yearly 1968 Sigmoidoscopy 1968 HIV screen 1986 Hepatitis C Screening 1986 Hepatitis B vaccine (0-59 yrs) and Risk (1) 1987 Tetanus/Diphtheria/Pertussis Vaccines (1 - Tdap) 03/05 HPV test 1998 PAP Smear 1998 Breast Cancer Share Decision Needed 2008 Breast Cancer screening 2008 Diabetes Screening (HgbA1C or Glucose) 2008 Pneumoccocal Vaccine: 50+ (1 of 1 - PCV) 2018 Zoster vaccine (1 of 2) 2018 Advance Directive 2023 Covid-19 Vaccine (1 - 2023- season) 2023 Influenza (Flu) vaccine (1 o f 1 - Influenza standard series) 11/26/[address] [place] [address] [facility] Care Teams Plastic And Reconstructive Surgeon Relationship Specialty Start Date End Date Abbie Bal MD [address] [place] [phone] PCP - General Internal Medicine 09/03/24
[2024-11-22] VITALS (11 sets, daily range): BP systolic 125–156; BP diastolic 63–99; PULSE 72–114; RESP 16–18; TEMP 36.1–36.4; O2SAT 96–100; BMI 24.9
--- NOTE | ~2024-11-22 | FL_ITS ---
EXAMINATION: FL GUIDANCE ONLY HISTORY: C7 FORAMINOTOMY COMPARISON: Correlation is made with plain films of the cervical spine 07/23/2024. TECHNIQUE: Fluoroscopy time: 5.5 seconds. Cumulative Dose: 0.6528 mGy. DAP: 0.2336 mGym2 Images: 1. FINDINGS: A single fluoroscopic spot film of the cervical spine in the lateral projection demonstrates a probe directed toward the C6-7 intervertebral disc space from a posterior approach. FL/FL guidance in OR IMPRESSION: Fluoroscopy during procedure. Please see procedure report for additional information. Electronically signed by: Boby Toney MD 11/22/2024 02:01 PM EDT
--- NOTE | 2024-11-22 10:02 | P.HPSUR_ITS ---
Pre-Procedural Eval Section A - 24 Hr Update-Section A only Date of Service: 11/22/24 The patient is an INPATIENT: No Section B - Complete if H&P > 30 days Chief Complaint: Radiculopathy, cervical region S/P Cervical Fusion Details of Present Illness: Left arm pain Allergies: Allergies Allergy/AdvReac Type Severity Reaction Status Date / Time pneumococcal vaccine Allergy Severe Swelling Verified 08/06/24 11:28 Penicillins Allergy Unknown Rash, as a Verified 08/06/24 11:28 baby Review of Systems Sugical H&P ROS: Negative: Constitution, Cardiovascular, Respiratory, Neurological, Psychiatric, Hem-Onc, Allergic/Immunologic, Gastrointestinal, Genitourinary, Musculoskeletal, Integumentary, Endocrine and Eyes/Ears/Nose/Thr oat Exam Surgical H&P Exam: Normal: HEENT, Normal: Heart, Normal: Lungs, Normal: Extremities, Normal: Abdomen, Normal: Skin and Normal: Neurological (Awake, alert) Plan Diagnosis/Plan: Unchanged I have reviewed the history and physical and performed a pertinent physical examination on my patient. No changes have occurred unless specified. Left C7 posterior foraminotomy Time Spent With Patient Time: Total time managing care of this patient today _5___ minutes.
[2024-11-22] MEDS: Lactated Ringers 1,000 ML 50 ML IVCONT (10:42)
--- NOTE | 2024-11-22 11:00 | HO.ANESPROP2 ---
[facility] Active Problems Active Problems: All Active Problems Cervical radiculopathy at C7 (Acute) S/P cervical spinal fusion (Acute) Herniation of cervical intervertebral disc with radiculopathy (Acute) Past Medical History Medical History (Updated 10/10/24 @ 16:21 by Chase Quigley MD, PhD) Osteopenia Personal history of COVID-19 (02/2024) Asthma Raynaud disease Chilblain GERD (gastroesophageal reflux disease) Left arm numbness Migraines Family History Family history of problems with anesthesia: No Surgical History Surgical History (Updated 11/20/24 @ 09:53 by Stefanie Mcbride RN) Hx of cervical spine surgery (07/11/24) History of section Hx of breast surgery Hx of hysterectomy Hx of tubal ligation Hx of colonoscopy History of Problems with Anesthesia: No Social History Social History Household Members: Spouse Housing: House Are you a primary career specialist to a significant other at home: No Do you presently have visiting nurse or other home services: No Comment: medicated Patient Tobacco Use Status: Never used Tobacco e-Cigarette/Vaping Use: Never Used Have you been hit, kicked, punched, or otherwise hurt by someone within the past year? If so, by whom?: No Are you DNR?: No Advance Directives: No Advance Directives Information Provided: Yes Meds Allergies Allergy/AdvReac Type Severity Reaction Status Date / Time pneumococcal vaccine Allergy Severe Swelling Verified 08/06/24 11:28 Penicillins Allergy Unknown Rash, as a Verified 08/06/24 11:28 baby Active Medications: Current Medications Lactated Ringer's (Lr) 1,000 mls @ 50 mls/hr IVCONT .Q20H MADDIE Last Admin: 11/22/24 10:42 Dose: 50 mls/hr Home Medications ?Medication ?Instructions ?Recorded ?Confirmed ?Last Taken ?Type cholecalciferol (vitamin D3) 25 25 mcg PO DAILY 07/05/24 11/20/24 11/21/24 History mcg (1,000 unit) capsule (Vitamin D3) famotidine 20 mg tablet 20 mg PO BEDTIME 07/05/24 11/20/24 11/21/24 History multivitamin 1 tab PO DAILY 07/05/24 11/20/2407/23/25 History topiramate 25 mg tablet 75 mg PO BEDTIME 07/05/24 11/20/24 11/14/24 History ubrogepant 100 mg tablet (Ubrelvy) 100 mg PO DAILY PRN Migraine 11/22/24 11/22/24 11/07/24 History Headache Exam Height,Weight and Vital Signs: Height 5 ft 2 in Weight 61.7 kg Last Vital Signs Temp 97.5 F 11/22/24 10:09 Pulse 77 11/22/24 10:09 Resp 18 11/22/24 10:09 BP 156/99 H 11/22/24 10:09 Pulse Ox 99 11/22/24 10:09 O2 Del Method Room Air 11/22/24 10:09 Airway Mallampati Class: II TM Dist: >3cm Neck ROM: Full Assessment and Plan Assessment Anesthesia Assessment: Anesthesia Plan Discussed and Chart Reviewed Final Anesthetic Review Family History of Problems with Anesthesia: No History of Problems with Anesthesia: No NPO: Yes ASA Class: II Final Preanesthetic Review: No Changes in Pt Med Stat, Meds/Allgs Chart Reviewed, Consent Obtained/Reviewed and Anes Risks/Benef Reviewed Patient Risk: Low Procedure Risk: Intermediate Anesthetic Plan Anesthetic Plan: GA Disposition: Standard PACU
--- NOTE | 2024-11-22 13:31 | P.OP_ITS ---
Operative Note Operative Note Date of Service: 11/22/24 Narrative: Preoperative Diagnosis: Left C7 radiculopathy Operation: Left C7 laminotomy and foraminotomy with microscope Consent Informed Consent was obtained for this operation. I have explained the nature, purpose and benefits of the operation. I have discussed the risks and benefit of the operation including possible complications or adverse events with patient/family. Alternative(s) were discussed with the patient with their relative benefits and risks as well as the consequences of not accepting the operation were included in obtaining consent. Surgeon: ENMANUEL MONTGOMERY MD, PHD Procedure Assisted By: CRALITOS Pablo Description of Procedure This patient underwent an ACDF C6-7 for left cervical radiculopathy. The pain is gone for 1 week after it returned. A new MRI shows mild left C7 foraminal stenosis. I offered her a C7 foraminotomy in a final attempt to help her with her pain. She is aware that the abnormalities on the MRI are very mild and the surgery may not help at all.. The patient was offered a decompression. The procedure complications were explained. The patient was consented. The patient was brought to the operating room and endotracheally intubated. The patient was turned in prone position on the gel rolls. Prep and drape was done followed by timeout. a midcervical incision was made. Dissection was carried down the midline to avoid blood loss. The paravertebral muscles were released to expose the C6 and C7 lamina in preparation for the foraminotomy. The microscope was brought in. A small C7 laminotomy was done. The origin of the C7 nerve was identified. The inferior articular process of C6 was drilled down after which with a 1. Kerrison a foraminotomy was done to decompress the nerve root. A nerve hook could be easily passed over the nerve root a sign of adequate decompression. The physician embroidery assistant performed hemostasis and closed incision. sandra were used to approximate the incision. An op-site with tegaderm was used to cover the incision. All sponge needle counts were correct. Patient was extubated and transported in stable is to recovery room. Anesthesia: General Estimated Blood Loss (ml): Minimal Duration of Surgery: Under 60 Minutes Postoperative Plan: Discharge to home
--- NOTE | 2024-11-22 13:41 | PM.DS ---
DS: Providers Provider Date of Service: 11/22/24 Date of discharge: 11/22/24 Primary care physician: Abbie Bal MD DS: Summary Time Attestation Discharge Coordination Time (in mins): 12 Quality: Safe Use of Opioids Does Pt have an Active Cancer Diagnosis on the Problem List?: No Quality: Stroke Does the patient have a stroke diagnosis?: No Physical Exam Vital Signs: Vital Signs: Last Vital Signs Temp 97.5 F 11/22/24 10:09 Pulse 77 11/22/24 10:09 Resp 18 11/22/24 10:09 BP 156/99 H 11/22/24 10:09 Pulse Ox 99 11/22/24 10:09 O2 Del Method Room Air 11/22/24 10:09 BMI result Body Mass Index 24.9 Discharge Plan Discharge Patient Disposition: Home, Self-Care Referrals: Abbie Bal MD [Primary Care Provider, Internal Medicine] - 1 Week Discharge Medications: New oxycodone 5 mg tablet 5 mg PO Q6H PRN (Reason: pain) Qty: 20 0RF Rx Instructions: Partial Fill upon patient request. sulfamethoxazole-trimethoprim [Bactrim DS] 800-160 mg tablet 1 tab PO BID 2 Days Qty: 4 0RF Continued topiramate 25 mg tablet 75 mg PO BEDTIME famotidine 20 mg tablet 20 mg PO BEDTIME multivitamin Tablet 1 tab PO DAILY cholecalciferol (vitamin D3) [Vitamin D3] 25 mcg (1,000 unit) Capsule 25 mcg PO DAILY Ubrelvy 100 mg tablet 100 mg PO DAILY PRN (Reason: Migraine Headache) Discharge Orders: Discharge Order (Routine); Ordered 11/22/24 Ordered By: Yousif Robison Diet: Advance to usual diet Activity on Discharge: As tolerated Activity Restrictions/Additional Instructions: After your spinal surgery we ask you to observe the following restrictions/guidelines: Activity: It is normal to feel some discomfort as you increase your activity, but that will improve with time. We ask you avoid heavy lifting or acitivities that cause pain. As a general rule, 8lbs is a safe limit for lifting right after surgery. Walk as much as you feel comfortable but not to exhaustion. You will feel extra tired the first few days after surgery. Stay well hydrated. It is OK to walk up and down stairs You may return to driving when you are off narcotics (such as vicodin, oxycodone, dilaudid, etc), and you are back to normal functional capacity. If you have any concerns please check with office before driving. Return to work is specific to each patient and each surgery, so please speak with your doctor/PA at first follow up. Please bring paperwork such as FMLA at that time if you need it filled out. Medications: We sent in a 2 day course of antibiotics (Bactrim) to your pharmacy. Please complete this as prescribed for infection prophylaxis. We recommend you take 1,000mg Tylenol every 8 hours for the first few weeks after surgery, if you do not have any liver issues and can tolerate this medication. Do not exceed 4,000mg daily. We will give you a short supply of narcotics after surgery (usually one weeks worth). If you need more please call the office but do not use more than prescribed. You will need to give our office 48 hours notice if you need narcotics refilled and we do not fill narcotics on weekends or evenings. If you are on a narcotic, it is a good idea to take a stool softener such as colace or senna to avoid constipation If you take blood thinner such as aspirin, Plavix, Coumadin, Effient, Eliquis etc for conditions such as Afib, DVT, Pulmonary embolus, coronary disease, stents etc please speak with your surgeon about specific details as to when you can resume these medications. You can resume NSAIDs on post op day 1 (eg: Motrin, Naproxen, etc). Follow up: Please call the office, , after surgery to arrange a 3 week follow up for wound check. Wound Care: You may remove your dressing on the first day after surgery. ?You may ?leave open to air. Please do not remove the steri strips underneath. they will fall off on their own in one week. IT IS NORMAL FOR THE WOUND TO OOZE OR BE BLOODY FOR A FEW DAYS AFTER SURGERY. ?IF THIS HAPPENS JUST PLACE NEW DRESSING OVER IT TO AVOID STAINING CLOTHES. You may shower on post op day # 1 We ask that you do not let the water soak the wound. If it does get wet, just towel dry lightly. Please do not scrub your incision or place any type of chemical/ointment on the wound. No tub baths, pools or jacuzzis for one month. If you have any leaking or redness from your wound, or fevers, please call the office. Print Language: Northern Irish
[2024-11-22] MEDS: oxyCODONE HCl Immed Release 5 MG TABLET PO (14:59)
== END 2024-11-22 15:29 | disposition home or self-care (01) ==
PROVIDERS: PCP Internal Medicine; Visit Provider Neurological Surgery
PROC: (CPT 63045; principal; 2024-11-22 12:50)
DX: M50.122 Cervical disc disorder at C5-C6 level with radiculopathy (principal); M85.80 Other specified disorders of bone density and structure, unspecified site; Z98.1 Arthrodesis status; I73.00 Raynaud's syndrome without gangrene; J45.909 Unspecified asthma, uncomplicated; K21.9 Gastro-esophageal reflux disease without esophagitis; R20.0 Anesthesia of skin; G43.909 Migraine, unspecified, not intractable, without status migrainosus; Z79.899 Other long term (current) drug therapy; Z88.0 Allergy status to penicillin; Z98.890 Other specified postprocedural states
CPT/HCPCS: 63045; J0131; J3010; J3374

== ENCOUNTER → 2024-11-22 09:46 | Outpatient (BNV) | payer BC, SELFPAY | PROVIDERS: PCP Internal Medicine; Visit Provider Neurological Surgery | DX: M54.12 Radiculopathy, cervical region (principal) | CPT/HCPCS: 63045 ==

== ENCOUNTER 2024-12-07 11:40 | Outpatient (AMB) | payer BC, SELFPAY ==
--- NOTE | 2024-12-07 11:49 | HO.SPINEOV ---
Intake Visit Reasons: Suture Removal Intake Note: Ms. Bennett is here today to have her Suture Removed. 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 The arm pain has changed in its character in its quality and that it is not quite as intense. She is happy with that but it is still lingering around a bit. She had sandra placed at the time of surgery she came today to get these out. Her wound is healing up beautifully. The sandra are in place without any issues. No sign of infection etc.. The sandra were removed without incident. I would like to see her back in 3-4 weeks. I filled out some paperwork for her to return to work on December 20. Woody Quigley MD, PhD [facility] Coding Level of Care Code Global (13456) Diagnoses Cervical radiculopathy at C7 M54.12
--- OUTSIDE RECORDS SUMMARY | 2024-12-07 14:07 | XMS_ITS | Clinical Summary ---
Author Organization [facility] [place] [address] Care Team Providers Care Behavioral Health Clinician Name Role Phone Abbie Bal MD Primary Care Provider [phone]- [phone] Allergies Active Allergy Reactions Criticality Noted Date [...] Care Team Description 10/24/2024 [place] [phone] Chelle Castaneda CMA Prior Authorization (ubrogepant (Ubrelvy) 100 mg tablet) 10/22/2024 2:00 PM EDT [place] [phone] Gilbert Rangel MD Chronic migraine without aura without status migrainosus, not intractable (Primary Dx); Carpal tunnel syndrome, bilateral; Chronic neck pain 10/22/2024 Travel 10/15/2024 Travel from Last 3 Months Social History Tobacco Use Types Packs/Day Years Used Date Smoking Tobacco: Never Tobacco Cessation:Counseling Given: Not Answered Comments Unknown Sex and Gender Information Value Date Recorded Sex Assigned at Not on file Legal Sex Female 2:35 PM EDT Gender Identity Not on file Sexual Orientation Not on file Occupation Industry Job Start Date Job End Date 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[employer] Not on file Not on file Not [...] 03/05 HPV test 1998 PAP Smear 1998 Diabetes Screening (HgbA1C or Glucose) 2003 Breast Cancer Share Decision Needed 2008 Breast Cancer screening 2008 Pneumoccocal Vaccine: 50+ (1 of 1 - PCV) 2018 Zoster vaccine (1 of 2) 2018 Advance Directive 2023 Covid-19 Vaccine (1 - season) 2024 Influenza (Flu) vaccine (1 o f 1 - Influenza standard series) 11/26/[address] [place] [address] [facility] Care Teams Behavioral Health Clinician Relationship Specialty Start Date End Date Abbie Bal MD [address] [place] [phone] PCP - General Internal Medicine 09/03/24
== END 2024-12-07 12:05 | disposition home or self-care (01) ==
LOC: HO.HNS 11:40
PROVIDERS: PCP Internal Medicine; Visit Provider Physician Assistant
DX: M54.12 Radiculopathy, cervical region (principal)
CPT/HCPCS: 99024

== ENCOUNTER 2024-12-28 13:21 | Outpatient (AMB) | payer BC, SELFPAY ==
--- OUTSIDE RECORDS SUMMARY | 2024-12-28 13:43 | XMS_ITS | Encounter Summary ---
[facility] [place] [address] Care Team Providers Care Incendiaries Supervisor Name Role Phone Abbie Bal MD Primary Care Provider +1- [phone] Reason for Visit * Reason Onset Date Comments Prior Authorization 12/20/2024 Ajovy Autoin jector 225 mg/1.5 mL Auto-Injector Encounter Details Date Type Department Care Team (Late st Contact Info) Description 12/20/2024 [place] [phone] Amanda Cartwright CMA Prior Authorization (Ajovy Autoinjector 225 mg/1.5 mL Auto-Injector) Social History Tobacco Use Types Packs/Day Years Used Date Smoking Tobacco: Never Comments Unknown Sex and Gender Information Value Date Recorded Sex Assigned at Not on file Legal Sex Female 2:35 PM EDT Gender Identity Not on file Sexual Orientation Not on file 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 Thanks! * Telephone Encounter - Amanda Cartwright CMA - 12/20/2024 2:09 PM EDT Images from the original note were not included. PA Submitted Submitted Date: Date Submitted: 12/20/2024 Medication Prior Authorization Patient: Mariah Bennett Patient : 1970 Insurance Company: [employer] Sent via: [facility] [place]: [id number] Physician: Gilbert Rangel MD Medication Requested: fremanezumab-vfrm (Ajovy Autoinjector) 225 mg/1.5 mL Auto-Injector Frequency/Sig: Inject 1.5 mLs subcutaneously every 30 days. Disp: 1.5 ml Refills: 5 Currently taking: no If yes, how long: Diagnosis for this medication: Chronic migraine without aura without status migrainosus, not intractable [G43.709] Prior medications trialed in this patient: Medication: gabapentin Approx Dates: 09/2024-current Outcome/Adverse Reactions: Inadequate response Medication: meloxicam Approx Dates: 08/2024-current Outcome/Adverse Reactions: Inadequate response Medication: sumatriptan Approx Dates: 07/2024-current Outcome/Adverse Reactions: Inadequate response Medication: topiramate Approx Dates: 08/2024-current Outcome/Adverse Reactions: Inadequate response Medication: Ubrelvy Approx Dates: 09/2024-current Outcome/Adverse Reactions: Inadequate response Additional Notes: documented in this encounter Plan of Treatment Not on file documented as of this encounter Visit Diagnoses Not on filedocumented in this encounter Care Teams Incendiaries Supervisor Relationship Specialty Start Date End Date Abbie Bal MD [address] [place] [phone] PCP - General Internal Medicine 09/03/24 documented as of this encounter
--- OUTSIDE RECORDS SUMMARY | 2024-12-28 13:44 | XMS_ITS | Clinical Summary ---
Author Organization [facility] Address [facility] [place] [address] Care Team Providers Care Gis Physical Scientist Name Role Phone Abbie Bal MD Primary Care Provider [phone]- [phone] Allergies Active Allergy Reactions Criticality Noted Date Comments Penicillins Hives,Rash 10/22/2024 Pneumococcal Vaccine 10/22/2024 Large amount of swelling at site of vaccine Medications gabapentin (Neurontin) 250 mg/5 mL Solution TAKE 12 ML BY MOUTH DAILY 10/17/19 25 Active meloxicam (Mobic) 15 mg tablet TAKE 1 TABLET BY MOUTH DAILY NEEDED FOR PAIN OR INFLAMMATION 08/29/19 25 Active SUMAtriptan (Imitrex) 100 mg tablet 100 mg. 08/17/19 25 Active topiramate (Topamax) 25 mg tablet Take 3 tablets by mouth 2 times daily. 09/22/19 25 Active famotidine (Pepcid) 20 mg tablet Take 20 mg by mouth nightly. 09/22/19 25 Active calcium-vitamin D3 600 mg-5 mcg (200 unit) Capsule Take by mouth. Activ e cyanocobalamin, Vitamin B-12, (Vitamin B-12) 250 mcg tablet Take 250 mcg by mouth daily. Active ubrogepant (Ubrelvy) 100 mg tabletIndicatio ns:Chronic migraine without aura without status migrainosus, not intractable Take orally one tablet at migraine onset; may repeat once within 24 hours. 9 tablet 5 10/23/19 25 Active acetaminophen (Tylenol) 650 mg/20.3 mL Solution Take 1,000 mg by mouth 3 times daily as needed. Active fremanezumab-vf rm (Ajovy Autoinjector) 225 mg/1.5 mL Auto-InjectorIn dications:Chron ic migraine without aura without status migrainosus, not intractable Inject 1.5 mLs subcutaneously every 30 days. 1.5 mL 5 12/10/19 Active Encounters Date Type Department Care Team Description 12/20/2024 Telephone Neurology at [place] [phone] Amanda Cartwright CMA Prior Authorization (Ajovy Autoinjector 225 mg/1.5 mL Auto-Injector) 12/09/2024 Orders Only Neurology at [place] [phone] Gilbert Rangel MD Chronic migraine without aura without status migrainosus, not intractable 10/24/2024 Telephone Neurology at [place] [phone] Chelle Castaneda CMA Prior Authorization (ubrogepant (Ubrelvy) 100 mg tablet) 10/22/2024 2:00 PM EDT Office Visit Neurology at [place] [phone] Gilbert Rangel MD Chronic migraine without aura [...] Industry 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
--- NOTE | 2024-12-28 13:51 | A.SPINEOV_ITS ---
Intake Visit Reasons: post op Intake Note: Ms. Bennett is here today for her 1st late post op. [employer] Taper Required: No Allergies pneumococcal vaccine Allergy (Severe, Verified 12/07/24 11:49) Swelling Penicillins Allergy (Unknown, Verified 12/07/24 11:49) Rash, as a baby Assessment & Plan Assessment & Plan (1) Cervical radiculopathy at C7: Code(s): M54.12 - Radiculopathy, cervical region Category: Medical Plan Mrs Bennett is about 6 weeks out from her left C7 foraminotomy. She feels as though she is significantly better than she was a year ago. After having had both operations she can say now with confidence that the pain is about 80% better. She will take Tylenol as needed. When her stress levels go up she will occasionally feel it get worsening but she understands how to deal with this. Her sandra were taken out it her last visit. She has had no issues with the wound. At this point she has no restrictions and can follow up with us on an as-needed basis. Woody Quigley MD, PhD [facility] Coding Level of Care Code Global (89863) Diagnoses Cervical radiculopathy at C7 M54.12
== END 2024-12-28 14:30 | disposition home or self-care (01) ==
LOC: HO.HNS 13:22
PROVIDERS: PCP Internal Medicine; Visit Provider Physician Assistant
DX: M54.12 Radiculopathy, cervical region (principal)
CPT/HCPCS: 99024